=== PATIENT | female | born 2000 | race Caucasian/White ===

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

== ENCOUNTER → 2023-01-09 15:03 | Outpatient (CLI) | payer OTHER, SELFPAY | PROVIDERS: Family Provider Family Medicine; PCP Family Medicine; Referring Provider Physician Assistant; Visit Provider Physician Assistant | DX: R19.5 Other fecal abnormalities (principal) | CPT/HCPCS: 87177; 87329 ==

== ENCOUNTER → 2023-04-15 16:25 | Outpatient (CLI) | payer OTHER, SELFPAY | PROVIDERS: Family Provider Family Medicine; PCP Family Medicine; Visit Provider Physician Assistant Medical | DX: N89.8 Other specified noninflammatory disorders of vagina (principal) | CPT/HCPCS: 87210 ==

== ENCOUNTER → 2024-10-27 07:07 | Outpatient (CLI) | payer OTHER, SELFPAY ==
[2024-10-27 07:52] LABS: Add Manual Diff / Slide Review NO; Hematocrit 36.6 % (36-46); Hemoglobin 12.7 g/dL (12.0-16.0); Lymphocytes Absolute Auto 3000 /uL (1100-4500); Mean Corpuscular HGB Conc 34.7 % (30-36); Mean Corpuscular Hemoglobin 32.0 PG (26-34); Mean Corpuscular Volume 92.0 fL (80-100); Platelet Count 262 X10^3/uL (150-400)
[2024-10-27 08:07] LABS: Bilirubin Urine UA NEGATIVE (NEGATIVE); Color Urine UA YELLOW; Glucose Urine UA NEGATIVE (Negative); Ketones Urine UA NEGATIVE (NEGATIVE); Leukocyte Esterase Urine UA NEGATIVE (NEGATIVE); Nitrite Urine UA NEGATIVE (Negative); Occult Blood Urine UA TRACE-INTACT (Negative); Protein Urine UA NEGATIVE (Negative); Specific Gravity Urine UA 1.015 (1.000-1.035); Urobilinogen Urine UA 0.2 E.U./dL (0.2)
[2024-10-27 08:15] LABS: Natera Collection Specimen Collected
[2024-10-27 08:43] LABS: Appearance Urine UA Slightly Cloudy; pH Urine UA 6.0 (4.5-8.0)
[2024-10-27 13:00] LABS: HCG Quantitative /Beta subunit 151010 mIU/mL
[2024-10-28 15:59] LABS: Hepatitis B Surface Antigen NEGATIVE s/c (NEGATIVE)
[2024-10-28 16:23] LABS: HIV 1 & 2 Ab/Ag 4th Gen Combo NEGATIVE (NEGATIVE); Hep C Virus Ab w/Reflex Quant NEGATIVE s/c (NEGATIVE)
== END ==
PROVIDERS: PCP Family Medicine; Referring Provider Family Medicine; Visit Provider Student in an Organized Health Care Education/Training Program
DX: O20.9 Hemorrhage in early pregnancy, unspecified (principal); Z3A.10 10 weeks gestation of pregnancy; Z13.79 Encounter for other screening for genetic and chromosomal anomalies; Z36.0 Encounter for antenatal screening for chromosomal anomalies
CPT/HCPCS: 36415; 80055; 81003; 84702; 86787; 86803; 86850; 86900; 86901; 87086; 87389

== ENCOUNTER → 2024-10-28 16:18 | Outpatient (CLI) | payer OTHER, SELFPAY ==
--- NOTE | 2024-10-28 16:20 | DI.US.S_ITS ---
PROCEDURE: US OB <= 14 WEEKS FETUS INDICATIONS: bleeding while OUTSIDE/PRIOR DATING DATA: Last menstrual period (LMP): 08/15/2024 LMP-based estimated date of delivery (KIARA): 05/22/2025 First dating scan (date and location): 10/28/2024 Estimated date of delivery (KIARA) from first dating scan: 05/25/2025 TECHNIQUE: Real-time scanning was performed of the fetus and maternal pelvic organs, with image documentation. Endovaginal scanning was also performed to better visualize the fetus and maternal ovaries. COMPARISON: None. FINDINGS: Embryo: Intrauterine gestational sac is seen with crown-rump length of the pole measuring 3.2 cm, compatible with an estimated gestational age of 10 weeks 1 day. Heart rate: 169 beats per minute Maternal organs: Probable left ovarian corpus luteal cyst. IMPRESSION: Single live intrauterine and size is concordant with clinical dates. Approved by: Tonny Mckeon M.D. on 10/29/2024 at 11:09
== END ==
LOC: US 16:19
PROVIDERS: PCP Family Medicine; Referring Provider Student in an Organized Health Care Education/Training Program; Visit Provider Student in an Organized Health Care Education/Training Program
DX: O46.91 Antepartum hemorrhage, unspecified, first trimester (principal); Z3A.10 10 weeks gestation of pregnancy
CPT/HCPCS: 76801; 76817

== ENCOUNTER → 2024-10-29 09:45 | Outpatient (CLI) | payer OTHER, SELFPAY ==
[2024-10-29 11:55] LABS: HCG Quantitative /Beta subunit 145640 mIU/mL
== END ==
PROVIDERS: PCP Family Medicine; Referring Provider Student in an Organized Health Care Education/Training Program; Visit Provider Student in an Organized Health Care Education/Training Program
DX: O20.9 Hemorrhage in early pregnancy, unspecified (principal)
CPT/HCPCS: 36415; 84702

== ENCOUNTER → 2025-01-02 12:07 | Outpatient (CLI) | payer OTHER, SELFPAY ==
--- NOTE | 2025-01-02 12:08 | DI.US.S_ITS ---
PROCEDURE: US OB >= 14 WEEKS FETUS INDICATIONS: BULL OUTSIDE/PRIOR DATING DATA: The calculations are made using the working KIARA of 05/22/2025. TECHNIQUE: Real-time scanning was performed of the fetus, with image documentation and biometric measurements. Endovaginal scanning: Not performed COMPARISON: [facility], OB <= 14 WEEKS FETUS, 10/28/2024, 16:52. FINDINGS: General: A single living intrauterine gestation is present. Presentation: Vertex. Placenta: Placental position is anterior , without previa. Amniotic fluid index: 13.2 cm, normal range is 5-24 cm. Single deepest vertical pocket is 4.1 cm. heart rate: 150 beats per minute. Maternal cervical canal: 3.3 cm long. Normal lower limit is 2.5 cm. biometrics: Biparietal diameter: 4.5 cm, 19 weeks 5 days Head circumference: 16.4 cm, 19 weeks 1 day Abdominal circumference: 13.3 cm, 18 weeks 5 days Femur length: 2.8 cm, 18 weeks 4 days Clinically estimated gestational age: 20 weeks 0 days Composite gestational age from present scan: 19 weeks 0 days Estimated weight and percentile: 254 g, 3rd percentile Anatomic survey: Neuro: Ventricles are non-dilated at less than 10 mm. Cisterna magna is normal at 3-11 mm. Cerebellum is normal in size and morphology. Nuchal skin fold: Normal at less than 6 mm between 14-21 weeks gestational age. Face: Nose and lips, facial profile are normal. Spine: No evidence for spina bifida. Heart: 4-chambered heart is present, with normal ventricular outflow tracts. Diaphragm: Diaphragm is intact. Stomach: Left-sided stomach is present. Kidneys: No hydronephrosis. Normal is less than 5 mm in 2nd trimester, less than 7 mm in 3rd trimester. Cord: 3-vessel cord has marginal cord insertion approximately 4 mm from the placental edge. Bladder: Normal in size. Extremities: All 4 extremities identified. IMPRESSION: 1. Single live intrauterine consistent with 19 weeks and 0 days. 2. Estimated weight is in the 3rd percentile concerning for microsomia, recommend short-term follow-up ultrasound. 3. Marginal cord insertion approximately 4 mm from the placental edge. Attention on follow-up. 4. Otherwise, anatomic survey is within normal limits. We strive to produce accurate, complete, and clear reports of imaging services. To assist us in improving patient care, this report was composed using standard report templates and voice recognition software. Therefore, it may contain abnormal punctuation, insertions and/or omissions. Occasional wrong-word or sound-alike substitutions may occur. Though we review the report and make efforts to correct it, we do recommend that the report be read carefully in proper context to recognize any text inaccuracies. Dictated by: Suleiman Douglas M.D. on 01/02/2025 at 16:38 Approved by: Suleiman Douglas M.D. on 01/02/2025 at 16:41
== END ==
LOC: US 12:08
PROVIDERS: PCP Family Medicine; Referring Provider Student in an Organized Health Care Education/Training Program; Visit Provider Student in an Organized Health Care Education/Training Program
DX: Z36.89 Encounter for other specified antenatal screening (principal); Z3A.19 19 weeks gestation of pregnancy
CPT/HCPCS: 76811

== ENCOUNTER → 2025-01-12 10:38 | Outpatient (CLI) | payer OTHER, SELFPAY ==
--- NOTE | 2025-01-12 10:40 | DI.US.S_ITS ---
PROCEDURE: US OB FOLLOW UP INDICATIONS: small for GA, 3rd % OUTSIDE/PRIOR DATING DATA: Working KIARA 05/22/2025 TECHNIQUE: Real-time scanning was performed of the fetus, with image documentation and biometric measurements. Endovaginal scanning: Not obtained COMPARISON: [facility], , OB >= 14 WEEKS FETUS, 01/02/2025, 12:28. FINDINGS: General: A single living intrauterine gestation is present. Presentation: Vertex. Placenta: Placental position is anterior. Placental cord insertion is approximately 3.7 cm from the placental edge on sagittal imaging of 1.3 cm on transverse imaging, unchanged. Amniotic fluid index: 17.5 cm, normal range is 5-24 cm. Single deepest vertical pocket is 4.6 cm. heart rate: 157 beats per minute. Maternal cervical canal: 4.6 cm long. Normal lower limit is 2.5 cm. biometrics: Biparietal diameter: 5.1 cm 21 weeks 3 days Head circumference: 17.8 cm 20 weeks 2 days Abdominal circumference: 14.7 cm 20 weeks 0 days Femur length: 3 cm 19 weeks 2 days Clinically estimated gestational age: 21 weeks 3 days Composite gestational age from present scan: 20 weeks 2 days Estimated weight and percentile: 314 g, 2nd percentile. This is compared to 3rd percentile on prior exam. Other: Not applicable. IMPRESSION: Single live intrauterine with gestational age today of 20 weeks 2 days. Cord insertion is unchanged. weight at the 2nd percentile. While this is relatively early in gestation, there is concern for microsomia/intrauterine growth restriction and close interval follow-up is recommended. We strive to produce accurate, complete, and clear reports of imaging services. To assist us in improving patient care, this report was composed using standard report templates and voice recognition software. Therefore, it may contain abnormal punctuation, insertions and/or omissions. Occasional wrong-word or sound-alike substitutions may occur. Though we review the report and make efforts to correct it, we do recommend that the report be read carefully in proper context to recognize any text inaccuracies. Dictated by: Rosa Garcia M.D. on 01/12/2025 at 19:35 Approved by: Rosa Garcia M.D. on 01/12/2025 at 20:11
== END ==
LOC: US 10:39
PROVIDERS: PCP Family Medicine; Referring Provider Student in an Organized Health Care Education/Training Program; Visit Provider Student in an Organized Health Care Education/Training Program
DX: Z34.02 Encounter for supervision of normal first pregnancy, second trimester (principal); Z3A.20 20 weeks gestation of pregnancy
CPT/HCPCS: 76816